=== PATIENT | male | born 1950 | race Caucasian/White ===

== ENCOUNTER 2025-05-24 07:21 | Inpatient (IN) | payer MEDICARE, SELFPAY ==
[2025-05-23 19:54] VITALS: BP 129/61
[2025-05-23 19:57] VITALS: BP 107/64; BMI 27.6
[2025-05-23 20:00] VITALS: BP 107/64
[2025-05-23 20:15] LABS: Hematocrit 37.5 % (39.0-52.0); Hemoglobin 12.7 g/dL (13.0-18.0); Mean Corp Hgb Conc. 33.9 g/dL (33.0-37.0); Mean Corpuscular Volume 88.7 fL (80.0-94.0); Nucleated Red Blood Cells % 0 % (-); Platelet Count 105 10^3/uL (130-400); Red Cell Dist. Width 12.0 % (11.5-14.5)
[2025-05-23 20:36] LABS: ALT (SGPT) 14 U/L (0-50); AST (SGOT) 21 U/L (17-59); Albumin 4.3 g/dl (3.5-5.0); Alkaline Phosphatase 75 U/L (38-126); Blood Urea Nitrogen 36 mg/dl (9-20); Calcium 8.7 mg/dl (8.4-10.2); Carbon Dioxide 21 mmol/L (22-30); Chloride 100 mmol/L (98-107); Estimated Creatinine Clearance 24 ml/min; Glucose 164 mg/dl (70-99); Lipase 111 U/L (23-300); Potassium 5.3 mmol/L (3.5-5.1); Sodium 130 mmol/L (135-145); Total Protein 6.8 g/dl (6.3-8.2); eGFR 20.07
[2025-05-23 21:00] VITALS: BP 97/64
[2025-05-23 22:00] VITALS: BP 107/62
[2025-05-23] MEDS: NSS 1000 IV (22:14)
[2025-05-23] MEDS: OMNIPAQUE 50 ML PO (22:18)
[2025-05-23 22:36] LABS: COVID-19 Antigen Negative (Negative)
[2025-05-23 23:00] VITALS: BP 109/62
--- NOTE | 2025-05-23 23:49 | ED.GENMED ---
History of Present Illness
<Halie Rosales PA-C - Last Filed: 05/24/25 13:00>
General
Chief Complaint: Abdominal Symptoms
Source: patient and family
Exam Limitations: none
Time Seen by Provider: 05/23/25 21:19
Nursing documentation reviewed up to this point in time: agreed with
History of Present Illness
History of Present Illness:
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 Patient and both suffer from baseline dementia and are poor historians. History taking
somewhat limited however patient's daughter did provide some background information.
Patient states that he has been experiencing subjective fevers/chills as well as significant loose output from ostomy. It is unclear how long the symptoms been occurring. Patient states he feels more weak than his baseline. He also had 2 episodes
of vomiting today. He denies any abdominal pain, dysuria, hematuria. No chest pain or shortness of breath. He denies any recent antibiotic use or hospitalization.
Patient's daughter states that she face times her parents every day and yesterday they seem to be at their baseline health. However, when she spoke with them today he was expressing the need to be seen in emergency department. He did seem somewhat
confused.
Patient is not on any oral anticoagulation.
Review of Systems
<Halie Rosales PA-C - Last Filed: 05/24/25 13:00>
Review of Systems
Allergies reviewed?: Yes
All Other Systems: ROS reviewed and negative except as documented in HPI and ROS
Phy Exam
<Halie Rosales PA-C - Last Filed: 05/24/25 13:00>
Physical Exam
Physical Exam:
Vitals: Patient's vital signs are stable. Temp 99.9F
General: Patient appears in no distress.
Skin: Warm and dry, no rashes or lesions
Head: Normocephalic, atraumatic
Eyes: Sclera nonicteric.
Throat: Protecting airway
Neck: Normal ROM, no cervical spine tenderness, no meningismus
Cardiac: Regular rate and rhythm, no murmurs.
Pulm: Normal respiratory effort, no wheezes, rales, rhonchi heard on exam
Abdomen: Abdomen soft and nontender. Colostomy bag with light brown liquid stool. No erythema, tenderness surrounding ostomy site
Extremities: No evidence of cyanosis or edema
Neuro: AAOx2. No focal deficits.
Psychiatric: Normal affect.
Course
<Halie Rosales PA-C - Last Filed: 05/24/25 13:00>
Orders/Labs/Results
Orders:
Orders
05/23/25 20:00
Complete Blood Count/With Diff Urgent
Comprehensive Metabolic Panel Urgent
Lipase Urgent
05/23/25 21:59
Urinalysis Reflex To Culture Urgent
Date Specimen was Collected: 05/23/25
Time Specimen was Collected: 23:57
Iohexol [Omnipaque] See Protocol PO NOW STA
05/23/25 22:00
0.9% Sodium Chloride 1000 ml [Nss] 1,000 ml IV BOLUS
05/23/25 22:09
COVID-19 Antigen Urgent
Source: Nasal Swab
Lactic Acid Q4H
Comment: CANCEL 2nd LACTIC ACID IF 1st LACTIC ACID IS LESS THAN 2
Blood Culture Q30M
ASHLYN Source: Blood/Venous
Specimen Description:
Blood Culture Q30M
ASHLYN Source: Blood/Venous
Specimen Description:
Influenza A+B Rapid Molecular Urgent
ASHLYN Source: Nasal Swab
Specimen Description:
05/23/25 22:23
STOOL [C difficile Antigen & Toxins] Urgent
ASHLYN Source: Feces/Stool
Specimen Description:
Date Specimen was Collected: 05/23/25
Time Specimen was Collected: 22:22
Stool Culture Urgent
ASHLYN Source: Feces/Stool
Specimen Description:
Date Specimen was Collected: 05/23/25
Time Specimen was Collected: 22:23
05/23/25 23:58
EKG- Treatment ONCE
05/24/25
Electrocardiogram (*1) Stat
Reason for Study: Chest Pain
CT Abd/pel (oral only)-[facility] Only Urgent
Comment: colostomy, renal insufficiency
Reason For Exam: vomiting, diarrhea, fever
05/24/25 01:00
Osmolality, Random Urine Urgent
Date Specimen was Collected: 05/23/25
Time Specimen was Collected: 23:57
Comment: ADD
Urine Microscopic Reflex Cult Urgent
05/24/25 02:58
Acetaminophen [Tylenol] 650 mg PO Q4HPRN PRN
Ondansetron Injectable [Zofran] 4 mg IV Q6HPRN PRN
05/24/25 03:00
Flush (0.9% Sodium Chloride) [Flush (Nss)] See Dose Instructions IV PER PROTOCOL
05/24/25 04:08
0.9% Sodium Chloride 1000 ml [Nss] 1,000 ml IV 125 mls/hr
05/24/25 05:25
Basic Metabolic Panel Urgent
CBC/With Diff [Complete Blood Count/With Diff] Urgent
TSH Urgent
Comment: ADD
05/24/25 08:00
Heparin 5,000 units SC Q8
Abnormal Lab Results
05/23/25 05/24/25 05/24/25
20:00 01:00 05:25
WBC 12.8 H 10^3/uL
(4.8-10.8)
RBC 4.23 L 10^6/uL 4.13 L 10^6/uL
(4.70-6.10) (4.70-6.10)
Hgb 12.7 L g/dL 12.3 L g/dL
(13.0-18.0) (13.0-18.0)
Hct 37.5 L % 36.5 L %
(39.0-52.0) (39.0-52.0)
Plt Count 105 L 10^3/uL 91 L 10^3/uL
(130-400) (130-400)
Abs Immat Gran (auto) 0.1 H 10^3/uL
(0-0.05)
Absolute Neuts (auto) 7.1 H 10^3/uL 9.9 H 10^3/uL
(1.4-6.5) (1.4-6.5)
Absolute Lymphs (auto) 0.5 L 10^3/uL
(1.2-3.4)
Absolute Monos (auto) 0.8 H 10^3/uL 1.5 H 10^3/uL
(0.1-0.6) (0.1-0.6)
Immature Gran % 0.6 H %
(0-0.5)
Neutrophils % 83.1 H % 77.4 H %
(42.2-75.2) (42.2-75.2)
Lymphocytes % 6.1 L % 10.2 L %
(20.5-51.1) (20.5-51.1)
Monocytes % 9.9 H % 11.4 H %
(1.7-9.3) (1.7-9.3)
Sodium 130 L mmol/L 128 L mmol/L
(135-145) (135-145)
Potassium 5.3 H mmol/L
(3.5-5.1)
Carbon Dioxide 21 L mmol/L 20 L mmol/L
(22-30) (22-30)
BUN 36 H mg/dl 42 H mg/dl
(9-20) (9-20)
Creatinine 3.1 H mg/dL 3.3 H mg/dL
(0.7-1.3) (0.7-1.3)
Glucose 164 H mg/dl 125 H mg/dl
(70-99) (70-99)
Ur Occult Blood Reflex 1+ A
(Negative)
Urine RBC 3-6 A /HPF
(0-2)
Urine Bacteria (Reflex) Few A
(Negative)
Urine Glucose 3+ A
(Negative)
Urine Albumin (Reflex) 2+ A
(Neg - Trace)
05/24/25 05:25
05/24/25 05:25
Vital Signs
Initial and Last Documented VS:
Initial Vital Signs
BP
129/61
05/23/25 19:54
Last Documented Vital Signs
Temp Pulse Resp BP Pulse Ox
98.4 F 65 18 123/65 96
05/24/25 09:27 05/24/25 09:27 05/24/25 09:27 05/24/25 09:27 05/24/25 09:27
<Weston Jaffe, DO - Last Filed: 05/24/25 00:57>
Orders/Labs/Results
Orders:
Orders
05/23/25 20:00
Complete Blood Count/With Diff Urgent
Comprehensive Metabolic Panel Urgent
Lipase Urgent
05/23/25 21:59
Urinalysis Reflex To Culture Urgent
Date Specimen was Collected: 05/23/25
Time Specimen was Collected: 23:57
Iohexol [Omnipaque] See Protocol PO NOW STA
05/23/25 22:00
0.9% Sodium Chloride 1000 ml [Nss] 1,000 ml IV BOLUS
05/23/25 22:09
COVID-19 Antigen Urgent
Source: Nasal Swab
Lactic Acid Q4H
Comment: CANCEL 2nd LACTIC ACID IF 1st LACTIC ACID IS LESS THAN 2
Blood Culture Q30M
ASHLYN Source: Blood/Venous
Specimen Description:
Blood Culture Q30M
ASHLYN Source: Blood/Venous
Specimen Description:
Influenza A+B Rapid Molecular Urgent
ASHLYN Source: Nasal Swab
Specimen Description:
05/23/25 22:23
STOOL [C difficile Antigen & Toxins] Urgent
ASHLYN Source: Feces/Stool
Specimen Description:
Date Specimen was Collected: 05/23/25
Time Specimen was Collected: 22:22
Stool Culture Urgent
ASHLYN Source: Feces/Stool
Specimen Description:
Date Specimen was Collected: 05/23/25
Time Specimen was Collected: 22:23
05/23/25 23:58
EKG- Treatment ONCE
05/24/25
Electrocardiogram (*1) Stat
Reason for Study: Chest Pain
CT Abd/pel (oral only)-[facility] Only Urgent
Comment: colostomy, renal insufficiency
Reason For Exam: vomiting, diarrhea, fever
05/24/25 01:00
Osmolality, Random Urine Urgent
Date Specimen was Collected: 05/23/25
Time Specimen was Collected: 23:57
Comment: ADD
Urine Microscopic Reflex Cult Urgent
05/24/25 02:58
Acetaminophen [Tylenol] 650 mg PO Q4HPRN PRN
Ondansetron Injectable [Zofran] 4 mg IV Q6HPRN PRN
05/24/25 03:00
Flush (0.9% Sodium Chloride) [Flush (Nss)] See Dose Instructions IV PER PROTOCOL
05/24/25 04:08
0.9% Sodium Chloride 1000 ml [Nss] 1,000 ml IV 125 mls/hr
05/24/25 05:25
Basic Metabolic Panel Urgent
CBC/With Diff [Complete Blood Count/With Diff] Urgent
TSH Urgent
Comment: ADD
05/24/25 08:00
Heparin 5,000 units SC Q8
Abnormal Lab Results
05/23/25 05/24/25 05/24/25
20:00 01:00 05:25
WBC 12.8 H 10^3/uL
(4.8-10.8)
RBC 4.23 L 10^6/uL 4.13 L 10^6/uL
(4.70-6.10) (4.70-6.10)
Hgb 12.7 L g/dL 12.3 L g/dL
(13.0-18.0) (13.0-18.0)
Hct 37.5 L % 36.5 L %
(39.0-52.0) (39.0-52.0)
Plt Count 105 L 10^3/uL 91 L 10^3/uL
(130-400) (130-400)
Abs Immat Gran (auto) 0.1 H 10^3/uL
(0-0.05)
Absolute Neuts (auto) 7.1 H 10^3/uL 9.9 H 10^3/uL
(1.4-6.5) (1.4-6.5)
Absolute Lymphs (auto) 0.5 L 10^3/uL
(1.2-3.4)
Absolute Monos (auto) 0.8 H 10^3/uL 1.5 H 10^3/uL
(0.1-0.6) (0.1-0.6)
Immature Gran % 0.6 H %
(0-0.5)
Neutrophils % 83.1 H % 77.4 H %
(42.2-75.2) (42.2-75.2)
Lymphocytes % 6.1 L % 10.2 L %
(20.5-51.1) (20.5-51.1)
Monocytes % 9.9 H % 11.4 H %
(1.7-9.3) (1.7-9.3)
Sodium 130 L mmol/L 128 L mmol/L
(135-145) (135-145)
Potassium 5.3 H mmol/L
(3.5-5.1)
Carbon Dioxide 21 L mmol/L 20 L mmol/L
(22-30) (22-30)
BUN 36 H mg/dl 42 H mg/dl
(9-20) (9-20)
Creatinine 3.1 H mg/dL 3.3 H mg/dL
(0.7-1.3) (0.7-1.3)
Glucose 164 H mg/dl 125 H mg/dl
(70-99) (70-99)
Ur Occult Blood Reflex 1+ A
(Negative)
Urine RBC 3-6 A /HPF
(0-2)
Urine Bacteria (Reflex) Few A
(Negative)
Urine Glucose 3+ A
(Negative)
Urine Albumin (Reflex) 2+ A
(Neg - Trace)
05/24/25 05:25
05/24/25 05:25
Vital Signs
Initial and Last Documented VS:
Initial Vital Signs
BP
129/61
05/23/25 19:54
Last Documented Vital Signs
Temp Pulse Resp BP Pulse Ox
98.4 F 65 18 123/65 96
05/24/25 09:27 05/24/25 09:27 05/24/25 09:27 05/24/25 09:27 05/24/25 09:27
<Halie Rosales PA-C - Last Filed: 05/24/25 13:00>
MDM/Problems Addressed
Differential Diagnosis Includes:
Not limited to: Viral gastroenteritis, colitis, bowel obstruction, UTI/pyelonephritis, acute dehydration/electrolyte derangements, etc.
MDM/Problems Addressed:
74-year-old male presents with generalized weakness and intermittent vomiting. He reports chills and subjective fever today, but denies abdominal pain. He has a colostomy with reported recent increase in loose output.
On arrival, vitals are stable. On physical exam, patient is in no acute distress. Colostomy bag contains brown, liquid output without surrounding skin changes or erythema. Abdomen is soft, non-tender, and non-distended. No evidence of acute change
in mental status noted.
Laboratory evaluation reveals findings consistent with acute dehydration, including acute on chronic renal insufficiency and hyponatremia. These findings are likely secondary to GI losses. CT imaging shows evidence of ileitis, which may be
contributing to the patient�s increased colostomy output and fluid losses. No obstruction.
Generalized weakness suspected secondary to volume depletion in the setting of gastrointestinal illness. No signs of sepsis or focal infection requiring emergent intervention identified at this time.
Plan is to admit for IV fluid resuscitation, electrolyte monitoring and replacement, and further evaluation and supportive care. Will hold abx at this time. Patient remains hemodynamically stable and has been accepted to the hospitalist service for
continued inpatient management
Chronic conditions affecting care:
History of severe colitis with ostomy
Acute Exacerbation and/or Progression of Chronic Illness:
N/A
<Halie Rosales PA-C - Last Filed: 05/24/25 13:00>
*Radiology
Radiology exam reviewed: radiology read reviewed
*Pulse Oximetry
SaO2: 96
Oxygen Mode of Delivery: Room air
Patient hypoxic: no
*EKG
Interpreted by ED Provider?: Yes
EKG Intrepretation Date: 05/23/25
Interpretation: abnormal
Comparison EKG: no comparison EKG present
Heart Rate: 70
Rate: normal
Rhythm: sinus and PVC's
Higginson: normal axis
Interval: normal QT interval
QRS Pattern: low voltage
Ischemia: non-specific ST changes
*Nurse Ortho Interpretation
Rate: normal
Interpretation: normal
Heart Rate: 68
Rhythm: sinus
*Critical Care Note
Total Time (30-74mins, 75-104mins- exclusive of procedures): Not Applicable
<Halie Rosales PA-C - Last Filed: 05/24/25 13:00>
Patient Management
Discussion with other providers: Hospitalist
ED Attending Note
<Halie Rosales PA-C - Last Filed: 05/24/25 13:00>
-
Portions of this chart may have been created with voice recognition software.� Occasional wrong word or��sound alike� substitutions may have occurred due to the inherent limitations of voice recognition software.
<Weston Jaffe DO - Last Filed: 05/24/25 00:57>
ED Attending Note
Patient seen and examined by attending physician: Yes
ED Attending Note:
74-year-old male with liquid stool in his ostomy and vomiting. CT scan shows enteritis. Lab work shows dehydration.
Patient to be admitted to the hospital service.
Discharge Plan
Departure
Patient Disposition: Admit
Date of Disposition: 05/24/25
Time of Disposition: 01:27
Presentation/result/management discussed w/ accepting MD/DO: Hospitalist
Discharge Problem:
Enteritis, Acute dehydration, Acute on chronic renal insufficiency
Interventions
Interventions:
*Risk Screen - Suicide Last Done: 05/23/25 19:57
*General Assessment Last Done: 05/23/25 19:57
*Neglect/Abuse Screening Last Done: 05/23/25 19:57
*ED- Fall Risk Assessment Last Done: 05/23/25 19:57
*ED COVID-19 Vaccine History Last Done: 05/23/25 19:57
*ED Influenza Vaccine History Last Done: 05/23/25 19:57
UT-Uuoleb-Yqhdwzllat Assessment Last Done: 05/24/25 03:41
[2025-05-24] VITALS (13 sets, daily range): BP systolic 97–124; BP diastolic 54–75
--- NOTE | 2025-05-24 02:26 | DOWNTIME ---
There was a [employer] Downtime on 05/24/2025 from 0100 to 05/24/2025 at 0215. Downtime documentation of patient's care, including medication administrations, has been reconciled in the electronic record per guidelines. Refer to the
patient's paper chart under the miscellaneous tab to see printed paper medication records and downtime forms.
[2025-05-24 02:30] LABS: Urine Character Clear (Clear)
--- NOTE | 2025-05-24 03:02 | HPS.HSE ---
Family Physician
-
Family Physician: NOT KNOW UNKNOWN - PT DOES
Chief Complaint
-
Loose stools, N/V
History of Present Illness
Patient is a 74y M with PMH significant for total colectomy / ileostomy for UC / Crohn's who presents to ED complaining of increased ostomy output / diarrhea for several weeks. He also reports occasional episodes of N/V of non-bloody emesis. He
has become increasingly weak during that time. Today he noted chills at home and presented to the ED for further evaluation. Patient denies any abdominal pain. He denies any recent travel or known sick contacts.
He has noted no blood in the stool or emesis.
Medical History
Past Medical History
Past Medical History: Reports Other
Additional Past Medical History:
Hypertension
CKD III
Hypothyroidism
Crohn's / UC
Past Surgical History: Reports Other
Additional Past Surgical History:
Total Colectomy / Ileostomy
Bilateral SENIA
RUE ORIF
Social History
Tobacco: Non-smoker
Alcohol: None
Drug: None
Family History
Family History: Not pertinent
Allergies / Home Medications
Allergies reflects when Allergies were last updated in [employer].
Home Medications with original date entered in [employer]
Allergy/Medication List:
Patient cannot confirm his current medications.
If medication reconciliation has not been performed, why?: Medication List N/A
Review of Systems
-
History Source: Patient
A 12 point ROS was completed and negative except as noted: Yes
Constitutional: Reports Fatigue; Denies Fever or Chills
Respiratory: Denies Cough or Trouble Breathing
Cardiac: Denies Chest Pain or Palpitations
Abdomen/GI: Reports Nausea, Vomiting and Diarrhea; Denies Abdominal Pain, Bloody Stools or Black Stools
: Denies Dysuria or Frequency
Musculoskeletal: Denies Joint Pain or Edema
Neurological: Denies Dizzy or Headache
Psych: Denies Depression or Anxiety
Physical Exam
Vital Signs
Vital Signs
Temp Pulse Resp BP Pulse Ox
99.9 F 64 24 102/63 95
05/23/25 20:18 05/24/25 02:45 05/24/25 02:45 05/24/25 02:23 05/24/25 02:45
Physical Exam
General: Other (74y M in no acute distress.)
HEENT: Moist mucous membranes and PERRLA
Respiratory: Clear; No Wheezes, Rales or Rhonchi
Cardiac: S1/S2 and Regular Rhythm; No Murmur
GI: Soft, Non Tender, Non Distended and Other (Bowel sounds are present but diminished. RLQ ostomy intact with liquid stool in device. No abdominal tenderness.)
Musculoskeletal: No Clubbing, No Cyanosis and No Edema
Neuro: AO x 3
Laboratory Results
-
05/23/25 20:00
05/23/25 20:00
Laboratory Results
Lactic Acid Cancelled 05/24/25 02:00
Total Bilirubin 0.8 mg/dl (0.2-1.3) 05/23/25 20:00
AST 21 U/L (17-59) 05/23/25 20:00
ALT 14 U/L (0-50) 05/23/25 20:00
Alkaline Phosphatase 75 U/L (38-126) 05/23/25 20:00
Lipase 111 U/L (23-300) 05/23/25 20:00
Impression/Plan
-
A/P: Patient is a 74y M with PMH significant for hypertension and CKD who presents to ED complaining of weakness and chills after 3 weeks of N/V/D.
Enteritis
- Admit for further evaluation and treatment.
- Stool cultures sent from the ED.
- Observe off of abx pending culture data.
- Supportive care with IVFs, antiemetics, etc.
- Follow for new / worsening symptoms.
- Routine ostomy care.
ARTEMIO on CKD III
- SCr = 3.1 compared to usual baseline around 2 (per patient).
- Likely due to volume losses as noted above.
- IVF support and follow for improvement in labs / lytes.
Benign Hypertension
- Patient unable to confirm current medication list.
- Formal med rec in AM and then resume meds as appropriate.
Hypothyroidism
- Confirm / resume usual dose of T4 in the AM.
Crohn's / UC
- Seems to be s/p curative colectomy.
- Ostomy care.
DVT Prophylaxis: Subcut Heparin
Code Status: Full
[2025-05-24] MEDS: NSS 1000 IV ×3 (04:08→20:38)
[2025-05-24] MEDS: FLUSH (NSS) 1 FLUSH IV (04:14)
[2025-05-24 05:46] LABS: Hematocrit 36.5 % (39.0-52.0); Hemoglobin 12.3 g/dL (13.0-18.0); Mean Corp Hgb Conc. 33.7 g/dL (33.0-37.0); Mean Corpuscular Volume 88.4 fL (80.0-94.0); Nucleated Red Blood Cells % 0 % (-); Platelet Count 91 10^3/uL (130-400); Red Cell Dist. Width 12.1 % (11.5-14.5)
[2025-05-24 06:03] LABS: Blood Urea Nitrogen 42 mg/dl (9-20); Calcium 8.6 mg/dl (8.4-10.2); Carbon Dioxide 20 mmol/L (22-30); Chloride 99 mmol/L (98-107); Estimated Creatinine Clearance 22 ml/min; Glucose 125 mg/dl (70-99); Potassium 4.8 mmol/L (3.5-5.1); Sodium 128 mmol/L (135-145); eGFR 18.62
--- NOTE | 2025-05-24 08:13 | PHANOTE ---
Med Rec Note:
Family not in room with pt, per previous notes pt is a poor historian. home med list compiled from Dr Stein, left unconfirmed.
[2025-05-24] MEDS: HEPARIN 5000 UNITS SC ×2 (08:25→17:30)
--- NOTE | 2025-05-24 10:41 | W.PN.HOSP.TC ---
Today's Communication/Plan
-
See plan
Assessment / Plan
Assessment / Plan
Impression
Patient is a 74y M with PMH significant for hypertension and CKD who presents to ED complaining of weakness and chills after 3 weeks of N/V/D with increased colostomy output
Enteritis.
� Presents with fever chills and increased colostomy output
ARTEMIO on CKD stage IIIb
Mild normal anion gap metabolic acidosis.
Hyponatremia
Conditions prior to admission
Ulcerative colitis status post colectomy remote over 35 years ago
CKD stage IIIb with baseline creatinine 2.5
Essential hypertension
Presumably hyperthyroidism (patient is on methimazole)
Plan
Acute enteritis.
Crohn's disease with colectomy over 35 years ago. Currently not on any anti-inflammatory or Biologics.
Presents with fever chills at home. Reports abdominal discomfort, nausea vomiting and increased colostomy output for over a week.
Afebrile pain
Mild leukocytosis
CT scan with oral contrast only suggestive of ileitis.
Stool cultures pending
Stool for C. difficile negative.
GI consultation.
Check calprotectin.
Consider antibiotics
Allow clear liquid diet
ARTEMIO on CKD stage III
Mild normal anion gap metabolic acidosis with
Mild hyponatremia presumed due to volume loss.
Check urine sodium and urine osmolarity.
Continue oral bicarbonate
Continue IV fluids.
Consider nephrology consultation if worsening renal function.
Presumed hyperthyroidism (patient was on methimazole pending home med reconciliation,
Update TSH/free T4
Essential hypertension.
Pending home med reconciliation. Hold antihypertensives secondary to above.
Monitor BP trend
Anticipated Discharge: 24 - 48 hours
Subjective/Interval History
-
Date of Service: May 24, 2025
Objective Data
-
Labs:
Laboratory Results
05/24/25
05:25
WBC 12.8 H
Hgb 12.3 L
Hct 36.5 L
Plt Count 91 L
Sodium 128 L
Potassium 4.8
Chloride 99
Carbon Dioxide 20 L
BUN 42 H
Creatinine 3.3 H
Glucose 125 H
Calcium 8.6
Vital Signs:
Vital Signs
Temp Pulse Resp BP Pulse Ox
98.4 F 65 18 123/65 96
05/24/25 09:27 05/24/25 09:27 05/24/25 09:27 05/24/25 09:27 05/24/25 09:27
I&O
05/23/25 05/24/25 05/25/25
06:59 06:59 06:59
Output Total 300 / 300
Balance -300 / -300
Physical Exam
-
General: Well Developed and No Apparent Distress
HEENT: Normocephalic, Atraumatic and Moist Mucous Membranes
Respiratory: Clear to Auscultation
Cardiac: Regular Rhythm and S1/S2; Negative Murmur, Rub or Gallop
GI: Soft, Nontender, Nondistended, Normal Bowel Sounds and Ostomy (Right upper quadrant colostomy.); Negative Organomegaly
Rectal: Deferred by Provider
Musculoskeletal: No Clubbing, No Cyanosis and No Edema
Skin: Negative Rash
Neuro: Nonfocal/Grossly Intact
--- NOTE | 2025-05-24 11:10 | CM ---
Cm reviewed chart and spoke with patient, Angelique and dtr Tory at bedside
Lives in a first floor set up apartment with Angelique no OWEN
Independent , ambulating w/o AD and drives
DME ostomy supplies ; [facility] supply
no issues with getting ostomy supplies
Dtr lives in [place] [phone] an hour away.
She states that 's dementia is worse than patient ?
Pt seems alert and able to answer questions approriately
Dtr and pt report that financial POA is [facility] in [place]?
not sure of medical POA
Pt not interested in talking regarding this at this time .
Dtr provided with info on [facility]
Dtr would like for them to move closer to her?
PCP Dr. Jevon Lane [phone]
RX plan yes
Ph[facility] in [place]
no hx of SN no SNF in the past
Dtr plans to take care of her mother while he is in the hospital
CM will continue to follow up for dcp needs
[2025-05-24] MEDS: SODIUM BICARBONATE 650 MG PO (11:24)
[2025-05-24 12:40] LABS: TSH 0.55 uIU/ml (0.47-4.68)
--- NOTE | 2025-05-24 14:26 | WOUNDNOTE ---
WOC RN NOTE: Ostomy consult received. Patient has had ostomy for over 30 years and will bring in supplies from home. He denies ostomy needs. TT Hospitalist and consult cancelled.
--- NOTE | 2025-05-24 15:08 | CON.GI ---
Addendum entered and electronically signed by Jennifer Pimentel DO 05/25/25 08:11:
The patient was seen and examined by me independently in collaboration with the nurse practitioner.
Past medical history/social history/medications/allergies/family history reviewed.
Lab data and imaging data reviewed.
Randy Melchor is a 74 y.o. male with HTN, CKD, UC vs. CD s/p total colectomy w/ end ileostomy (>35 years ago) who presents with fever and increased output from his ostomy. He is somewhat of a poor historian with regards to his history with
IBD-unclear of diagnosis and what led to his surgeries. He has not seen a GI doctor in 10 years. He reports his stoma 'fell off' about 1.5 years ago. Typically, fills his ostomy bag about 2-3x per day but stool is more formed, leading up to
admission, very loose, watery consistency, nonbloody. He has no abdominal pain, nausea or vomiting.
No recent GI care/workup
Denies prior pharmacologic management of his IBD, poor historian
No prior records to review.
Hgb 12.2, MCV 88.4, Plt 91
BUN 36, Cr. 3.1, Na 130, K 5.3, LFTs WNL
Unkonwn baseline platelets
CT A/P w/ PO Contrast shows evidence of prior colectomy with RLQ ileostomy. Stranding along the distal ileum, focal prominence within the right abdominal wall. No evidence of small bowel dilation. Evidence of choleithiasis, no ductail dilation.
Liver, pancreas and spleen appear normal.
#N/V
#Fever
#Watery Diarrhea
#Increased ostomy output
#History of crohns colitis vs. UC s/p total colectomy
#thrombocytopenia-unknown if this is new
#ARTEMIO on CKD
DDx: infectious enteritis vs. active small bowel crohns disease
Given acuity of sx, favor infectious. Workup in progress, no antibiotics given yet, patient does endorse improvement with just fluids
-C.diff negative, f/u remaining infectious stool studies
-ESR 42, CRP 119
-can check fecal calpro- but less helpful vs. colonic disease
-check MRE
-tentative plans for ileoscopy tomorrow pending results of above
-treatment of acidosis
-IVF
Original Note:
Consultation
-
Date/Time Consultation Requested: 05/24/25 1030
Date/Time Consultation Performed: 05/24/25 1500
Requesting Provider: Eduin Wallace MD
Performing Provider: EPI Zhou, Zee Pimentel DO
Reason for Consultation: change in ostomy output
Medical History
Chief Complaint / HPI
Chief Complaint: change in ostomy output
History of Present Illness:
Pt is a 74yo with no prior visits at with hx CKD, anemia, HTN, cholelithiasis, hyperthyroidism on Methimazole, depression, prior b/l THR, and ulcerative colitis. In review with patient he had total colectomy and ileostomy in [place] 35 years ago then removal of rectum 1 years after that. He was unsure if his diagnosis was changed to crohn's over the years and saw occasional GI in follow up last about 10 years ago. He had several admission to a hospital in
[place], [place] with what sound like possible SBO with decreased ostomy output. He has never taken medication for colitis for last 35 years. He also admits that the external stoma on ostomy fell off about 1-2 years ago and now depressed
ostomy and pt did not seek care as was still functioning. He now presents with change in ostomy output to liquid stools over last 4 weeks. Typically output is formed with change 4 times per day. Now all liquid with change 4-5 times per day. He
was then noted with fever and weakness. On admission noted with concern worsening CKD and metabolic acidosis with hyponatremia. Labs with Na 130, K 5.3, creat 3.1, WBC 12.8 with normal LFT's and lipase. CT on admission with prior colectomy right
LQ ileostomy, stranding in distal ileum with enteritis, prominence with ileostomy within abdominal wall.
In review with patient he admits to nausea and small amount of vomiting, he denies odynophagia, dysphagia, wt loss, GERD, abdominal pain, blood or black in stools. Last colonoscopy 35 years ago. No prior EGD. No NSAID other than ASA use. No
anticoagulation use.
Past Medical History
Past Medical History: HTN, Hyperthyroidism, Renal Failure (CKD), Psychiatric (depression) and Other (ulcerative colitis with ? crohns no chronic medications, anemia, cholelithiasis )
Past Surgical History: Bowel Resection (total colectomy 35 years ago than removal of rectum 34 years ago) and Orthopedic (b/l THR)
Social History
Tobacco: Non-Smoker
Alcohol: None
Drug: None
Personal:
Living: With Family
Employment: Retired
Family History
Family History: Other (paternal GF with UC)
Allergies / Home Medications
Allergy/AdvReac Type Severity Reaction Status Date / Time
No Known Allergies Allergy Verified 05/23/25 22:02
�Medication �Instructions �Recorded
amlodipine 5 mg tablet 5 mg PO DAILY 05/24/25
empagliflozin 10 mg tablet 10 mg PO DAILY 05/24/25
(Jardiance)
methimazole 5 mg tablet 5 mg PO DAILY 05/24/25
paroxetine HCl 10 mg tablet 10 mg PO DAILY 05/24/25
ramipril 1.25 mg capsule 1.25 mg PO DAILY 05/24/25
rosuvastatin 20 mg tablet 20 mg PO DAILY 05/24/25
sodium bicarbonate 650 mg tablet 650 mg PO DAILY 05/24/25
Review of Systems
-
History Source: Patient
Constitutional: Reports Fever and Chills
EENT: Reports No Symptoms
Respiratory: Reports No Symptoms
Cardiac: Reports No Symptoms
Abdomen/GI: Reports Nausea, Vomiting and Diarrhea
: Reports No Symptoms
Musculoskeletal: Reports No Symptoms
Skin: Reports No Symptoms
Neurological: Reports Weakness
Endocrine: Reports No Symptoms
Hematologic/Lymphatic: Reports No Symptoms
Vital Signs
Temp Pulse Resp BP Pulse Ox
98.4 F 65 18 111/75 97
05/24/25 09:27 05/24/25 09:27 05/24/25 09:27 05/24/25 09:51 05/24/25 09:52
Physical Exam
Exam
General: Well Developed, Well Nourished, No Apparent Distress and Other (occasional forgetfulness with dates for history)
HEENT: Normocephalic and Anicteric
Respiratory: Clear
Cardiac: Regular Rhythm
GI: Soft, Non Tender, Non Distended and Other (flat ostomy with yellow liquid stool)
Musculoskeletal: No Clubbing and No Cyanosis
Skin: Warm and Dry
Neuro: Awake, Alert and AO x 3
Psych: Calm
Results
WBC 12.8 10^3/uL (4.8-10.8) H 05/24/25 05:25
Hgb 12.3 g/dL (13.0-18.0) L 05/24/25 05:25
Hct 36.5 % (39.0-52.0) L 05/24/25 05:25
MCV 88.4 fL (80.0-94.0) 05/24/25 05:25
Plt Count 91 10^3/uL (130-400) L 05/24/25 05:25
Absolute Neuts (auto) 9.9 10^3/uL (1.4-6.5) H 05/24/25 05:25
Sodium 128 mmol/L (135-145) L 05/24/25 05:25
Potassium 4.8 mmol/L (3.5-5.1) 05/24/25 05:25
Chloride 99 mmol/L (98-107) 05/24/25 05:25
Carbon Dioxide 20 mmol/L (22-30) L 05/24/25 05:25
BUN 42 mg/dl (9-20) H 05/24/25 05:25
Creatinine 3.3 mg/dL (0.7-1.3) H 05/24/25 05:25
Calcium 8.6 mg/dl (8.4-10.2) 05/24/25 05:25
Total Bilirubin 0.8 mg/dl (0.2-1.3) 05/23/25 20:00
AST 21 U/L (17-59) 05/23/25 20:00
ALT 14 U/L (0-50) 05/23/25 20:00
Alkaline Phosphatase 75 U/L (38-126) 05/23/25 20:00
Lipase 111 U/L (23-300) 05/23/25 20:00
Diagnostic Image Results:
05.24.25 CT Abd/pel (oral only)- Only
Prior colectomy with right lower quadrant ileostomy. There is wall thickening and stranding along the distal ileum which likely represents enteritis. There is focal prominence of the ileostomy within the abdominal wall although there are no
intra-abdominal dilated loops of bowel to suggest obstruction..
Cholelithiasis.
Atrophic kidneys.
Prior GI Procedures:
EGD: none
Colonoscopy: 35 years ago
Assessment / Plan
-
Pt is a 74yo with no prior visits at with hx CKD, anemia, HTN, cholelithiasis, hyperthyroidism on Methimazole, depression, prior b/l THR, and ulcerative colitis. In review with patient he had total colectomy and ileostomy in [place] 35 years ago then removal of rectum 1 years after that. He was unsure if his diagnosis was changed to crohn's over the years and saw occasional GI in follow up last about 10 years ago. He had several admission to a hospital in
[place], [place] with what sound like possible SBO with decreased ostomy output. He has never taken medication for colitis for last 35 years. He also admits that the external stoma on ostomy fell off about 1-2 years ago and now depressed
ostomy and pt did not seek care as was still functioning. He now presents with change in ostomy output to liquid stools over last 4 weeks. Typically output is formed with change 4 times per day. Now all liquid with change 4-5 times per day. He
was then noted with fever and weakness. On admission noted with concern worsening CKD and metabolic acidosis with hyponatremia. Labs with Na 130, K 5.3, creat 3.1, WBC 12.8 with normal LFT's and lipase. CT on admission with prior colectomy right
LQ ileostomy, stranding in distal ileum with enteritis, prominence with ileostomy within abdominal wall.In review with patient he admits to nausea and small amount of vomiting, he denies odynophagia, dysphagia, wt loss, GERD, abdominal pain, blood
or black in stools. Last colonoscopy 35 years ago. No prior EGD. No NSAID other than ASA use. No anticoagulation use.
-change in ostomy output with liquid stools for 4 weeks
-low grade fever/leukocytosis
-nausea
-metabolic acidosis
-hyponatremia
-CT concern for enteritis and distal ileum stranding
-hx Ulcerative with ? transition to crohns but no current medication
-hx sluffing off of stoma about 1-2 years ago with flat stoma
-acute on chronic CKD
-hx prior SBO in past
other med problems:
- hx anemia- per patient related to CKD
-HTN
- cholelithiasis
- hyperthyroidism on Methimazole
- depression
- prior b/l THR
PLAN:
etiology of change in ostomy drainage related to underlying crohns with ? stricture, inflammation, vs infectious etiology vs other
cont to current acidosis and worsening CKD
clear diet advance in AM if tolerating and no vomiting
add CRP, ESR, fecal dionte
stool studies pending c-diff neg add stool wBC, giardia/crypto
t/c MRE or CTE when electrolytes improved
if not improving may need ileoscopy
if any issue with ostomy t/c colorectal eval with hx sluffing off of stoma 1-2 years ago but currently functiong
TSH 0.55
-
-
Thank you for consultation and allowing me to participate in the patient's care. Please call the clinical services professional GI physician during the after hours with any questions or concerns.
[2025-05-24 16:48] LABS: C-Reactive Protein 119.00 mg/L (0.0-10.00)
[2025-05-25] MEDS: HEPARIN 5000 UNITS SC ×4 (00:18→23:34)
[2025-05-25] MEDS: NSS 1000 IV ×2 (04:42→12:46)
[2025-05-25 07:51] VITALS: BP 153/70
[2025-05-25] MEDS: SODIUM BICARBONATE 650 MG PO (08:45)
[2025-05-25 08:55] LABS: Blood Urea Nitrogen 42 mg/dl (9-20); Calcium 8.4 mg/dl (8.4-10.2); Carbon Dioxide 20 mmol/L (22-30); Chloride 102 mmol/L (98-107); Estimated Creatinine Clearance 26 ml/min; Glucose 97 mg/dl (70-99); Potassium 4.4 mmol/L (3.5-5.1); Sodium 129 mmol/L (135-145); eGFR 22.67
[2025-05-25 09:01] LABS: Hematocrit 34.9 % (39.0-52.0); Hemoglobin 11.5 g/dL (13.0-18.0); Mean Corp Hgb Conc. 33.0 g/dL (33.0-37.0); Mean Corpuscular Volume 89.9 fL (80.0-94.0); Nucleated Red Blood Cells % 0 % (-); Red Cell Dist. Width 12.3 % (11.5-14.5)
[2025-05-25 10:12] LABS: Platelet Count 76 10^3/uL (130-400)
[2025-05-25 11:23] LABS: Glucose - Point of Care 102 mg/dl (70-99)
--- NOTE | 2025-05-25 14:05 | W.PN.HOSP.TC ---
Addendum entered and electronically signed by Eduin Wallace MD 05/25/25 14:31:
Discussed with GI
Since improvement, no further imaging planned
Advance to low residue diet and monitor.
Observe off IV fluids
Original Note:
Today's Communication/Plan
-
Reports improvement of abdominal discomfort.
GI contemplating further imaging with MRE and possibly ileoscopy.
Follow final stool cultures/stool WBC
Clear liquid diet
Observe off IV fluids
Follow BMP in a.m.
Assessment / Plan
Assessment / Plan
Impression
Patient is a 74y M with PMH significant for hypertension and CKD who presents to ED complaining of weakness and chills after 3 weeks of N/V/D with increased colostomy output
Enteritis.
� Presents with fever chills and increased colostomy output
ARTEMIO on CKD stage IIIb
Mild normal anion gap metabolic acidosis.
Hyponatremia
Conditions prior to admission
Ulcerative colitis status post colectomy remote over 35 years ago
CKD stage IIIb with baseline creatinine 2.5
Essential hypertension
Presumably hyperthyroidism (patient is on methimazole)
Plan
Acute enteritis.
Infectious versus IBD. Given acuity of onset suspect infectious.
Crohn's disease with colectomy over 35 years ago. Currently not on any anti-inflammatory or Biologics.
Presents with fever chills at home. Reports abdominal discomfort, nausea vomiting and increased colostomy output for over a week.
Afebrile
Mild leukocytosis
CT scan with oral contrast only suggestive of ileitis.
Stool cultures pending
Stool for C. difficile negative.
GI consultation.
Check calprotectin, pending
Has been off antibiotics
GI contemplating MRI and ileoscopy
Allow clear liquid diet
ARTEMIO on CKD stage III
Mild normal anion gap metabolic acidosis with
Mild hyponatremia presumed due to volume loss.
Low urine sodium and osmolarity 427 consistent with prerenal stimuli with increased ADH state.
Continue oral bicarbonate
Improving with IV fluids and oral bicarb.
Observe off IV fluids
Presumed hyperthyroidism (patient was on methimazole pending home med reconciliation,
TSH 0.55
Essential hypertension.
Pending home med reconciliation. Hold antihypertensives secondary to above.
Monitor BP trend
Anticipated Discharge: 24 - 48 hours
Subjective/Interval History
-
Date of Service: May 25, 2025
Objective Data
-
Labs:
Laboratory Results
05/25/25
07:32
WBC 8.5
Hgb 11.5 L
Hct 34.9 L
Plt Count 76 L
Sodium 129 L
Potassium 4.4
Chloride 102
Carbon Dioxide 20 L
BUN 42 H
Creatinine 2.8 H
Glucose 97
Calcium 8.4
Vital Signs:
Vital Signs
Temp Pulse Resp BP Pulse Ox
97.9 F 62 17 153/70 96
05/25/25 07:51 05/25/25 07:51 05/25/25 07:51 05/25/25 07:51 05/25/25 07:51
I&O
05/24/25 05/25/25 05/26/25
06:59 06:59 06:59
Intake Total 1500 / 1500
Output Total 300 / 300
Balance -300 / -300 1500 / 1500
Physical Exam
-
General: Well Developed and No Apparent Distress
HEENT: Normocephalic, Atraumatic and Moist Mucous Membranes
Respiratory: Clear to Auscultation
Cardiac: Regular Rhythm and S1/S2; Negative Murmur, Rub or Gallop
GI: Soft, Nontender, Nondistended, Normal Bowel Sounds and Ostomy (Right upper quadrant colostomy.); Negative Organomegaly
Rectal: Deferred by Provider
Musculoskeletal: No Clubbing, No Cyanosis and No Edema
Skin: Negative Rash
Neuro: Nonfocal/Grossly Intact
[2025-05-25 15:36] VITALS: BP 133/63
[2025-05-25 23:08] VITALS: BP 130/67
[2025-05-26 07:59] VITALS: BP 147/78
[2025-05-26 08:35] LABS: Blood Urea Nitrogen 32 mg/dl (9-20); Calcium 8.6 mg/dl (8.4-10.2); Carbon Dioxide 24 mmol/L (22-30); Chloride 107 mmol/L (98-107); Estimated Creatinine Clearance 32 ml/min; Glucose 98 mg/dl (70-99); Potassium 4.5 mmol/L (3.5-5.1); Sodium 136 mmol/L (135-145); eGFR 28.71
[2025-05-26] MEDS: SODIUM BICARBONATE 650 MG PO (10:26)
[2025-05-26] MEDS: HEPARIN 5000 UNITS SC ×2 (10:26→17:18)
--- NOTE | 2025-05-26 13:19 | W.DS.TRANS ---
DC Summary - [employer]
-
Discharge Instructions:
Discharge Diagnosis/Procedures Acute enteritis
ARTEMIO
Diet Regular
Blood Work BMP in one week
Instructions:
Stand-Alone Forms:
Changes to Home Medications: Yes
Discharge Medications:
DC Medications w/original date entered in [facility]
amlodipine 5 mg tablet 5 mg PO DAILY 05/24/25
empagliflozin 10 mg tablet (Jardiance) 10 mg PO DAILY 05/24/25
methimazole 5 mg tablet 5 mg PO DAILY 05/24/25
paroxetine HCl 10 mg tablet 10 mg PO DAILY 05/24/25
ramipril 1.25 mg capsule 1.25 mg PO DAILY 05/24/25
Held on 05/26/25. Instructions: Resume on 06/09/25.
rosuvastatin 20 mg tablet 20 mg PO DAILY 05/24/25
sodium bicarbonate 650 mg tablet 650 mg PO DAILY 05/24/25
Home Medication Changes
Holdong Ramiopril pending BMP as OP
Pending Results: No
--- NOTE | 2025-05-26 14:10 | W.PN.GI.CBS2 ---
Today's Communication / Plan
-
He is now relatively asymptomatic, denies abd pain, but MRE shows moderate/severe enteritis
Will plan ileoscopy tomorrow. Give 2L colyte.
Decide on rx, steroids, after scope. May need to discuss biologics as outpt.
Assessment / Plan
-
Pt is a 74yo with no prior visits at with hx CKD, anemia, HTN, cholelithiasis, hyperthyroidism on Methimazole, depression, prior b/l THR, and ulcerative colitis. In review with patient he had total colectomy and ileostomy in [place] 35 years ago then removal of rectum 1 years after that. He was unsure if his diagnosis was changed to crohn's over the years and saw occasional GI in follow up last about 10 years ago. He had several admission to a hospital in
[place], [place] with what sound like possible SBO with decreased ostomy output. He has never taken medication for colitis for last 35 years. He also admits that the external stoma on ostomy fell off about 1-2 years ago and now depressed
ostomy and pt did not seek care as was still functioning. He now presents with change in ostomy output to liquid stools over last 4 weeks. Typically output is formed with change 4 times per day. Now all liquid with change 4-5 times per day. He
was then noted with fever and weakness. On admission noted with concern worsening CKD and metabolic acidosis with hyponatremia. Labs with Na 130, K 5.3, creat 3.1, WBC 12.8 with normal LFT's and lipase. CT on admission with prior colectomy right
LQ ileostomy, stranding in distal ileum with enteritis, prominence with ileostomy within abdominal wall.In review with patient he admits to nausea and small amount of vomiting, he denies odynophagia, dysphagia, wt loss, GERD, abdominal pain, blood
or black in stools. Last colonoscopy 35 years ago. No prior EGD. No NSAID other than ASA use. No anticoagulation use.
-change in ostomy output with liquid stools for 4 weeks
-low grade fever/leukocytosis
-nausea
-metabolic acidosis
-hyponatremia
-CT concern for enteritis and distal ileum stranding
-hx Ulcerative with ? transition to crohns but no current medication
-hx sluffing off of stoma about 1-2 years ago with flat stoma
-acute on chronic CKD
-hx prior SBO in past
other med problems:
- hx anemia- per patient related to CKD
-HTN
- cholelithiasis
- hyperthyroidism on Methimazole
- depression
- prior b/l THR
MRE: severe acute enteritis 6cm segment b/w anterior abd wall and skin as well as mod/severe enteritis 12cm intraperitoneal ileum proximal to abd wall
Subjective
Subjective
Date of Service: May 26, 2025
Denies abd pain. Ileostomy output stable.
Objective
Data Reviewed
Laboratory Data:
Laboratory Results
05/25/25 07:32
05/26/25 07:19
Laboratory Results
Total Bilirubin 0.8 mg/dl (0.2-1.3) 05/23/25 20:00
AST 21 U/L (17-59) 05/23/25 20:00
ALT 14 U/L (0-50) 05/23/25 20:00
Alkaline Phosphatase 75 U/L (38-126) 05/23/25 20:00
Lipase 111 U/L (23-300) 05/23/25 20:00
Vital Signs and I&O:
Vital Signs
Temp Pulse Resp BP Pulse Ox
98.2 F 65 16 147/78 97
05/26/25 07:59 05/26/25 07:59 05/26/25 07:59 05/26/25 07:59 05/26/25 14:04
I&O
05/25/25 05/26/25 05/27/25
06:59 06:59 06:59
Intake Total 1500 / 1500 800 / 800 1020 / 1020
Balance 1500 / 1500 800 / 800 1020 / 1020
Physical Exam
Physical Exam
GI: Soft, Distended and Non Tender
[2025-05-26 15:49] VITALS: BP 121/65
--- NOTE | 2025-05-26 15:56 | W.PN.HOSP.TC ---
Today's Communication/Plan
-
Prep for ileoscopy tomorrow.
BMP in a.m.
Assessment / Plan
Assessment / Plan
Impression
Patient is a 74y M with PMH significant for hypertension and CKD who presents to ED complaining of weakness and chills after 3 weeks of N/V/D with increased colostomy output
Enteritis.
� Presents with fever chills and increased colostomy output
ARTEMIO on CKD stage IIIb
Mild normal anion gap metabolic acidosis.
Hyponatremia
Conditions prior to admission
Ulcerative colitis status post colectomy remote over 35 years ago
CKD stage IIIb with baseline creatinine 2.5
Essential hypertension
Presumably hyperthyroidism (patient is on methimazole)
Plan
Acute enteritis.
Infectious versus IBD. Given acuity of onset suspect infectious.
Crohn's disease with colectomy over 35 years ago. Currently not on any anti-inflammatory or Biologics.
Presents with fever chills at home. Reports abdominal discomfort, nausea vomiting and increased colostomy output for over a week.
Afebrile
Mild leukocytosis
CT scan with oral contrast only suggestive of ileitis.
Stool cultures negative
Stool for C. difficile negative.
Check calprotectin, pending
MRE findings consistent with severe acute enteritis involving terminal ileum, intraperitoneal distal ileum. Differential acute infection versus Crohn's flareup. 1.5 cm enhancing mass in the subcutaneous fat adjacent to the distal ileal loops in
ileostomy (probably enlarged lymph node)
No clinical indication for antibiotics
Overall improved initially on clear liquid diet and with IV hydration
Plan is for prep and ileoscopy/biopsy on 05/27.
Discussed with gastroenterology
ARTEMIO on CKD stage III
Mild normal anion gap metabolic acidosis with
Mild hyponatremia presumed due to volume loss.
Low urine sodium and osmolarity 427 consistent with prerenal stimuli with increased ADH state.
Creatinine improved with hydration close to baseline 2.3
Continue oral bicarbonate
Observe off IV fluids
Presumed hyperthyroidism (patient was on methimazole pending home med reconciliation,
TSH 0.55
Essential hypertension.
Pending home med reconciliation. Hold antihypertensives secondary to above.
Monitor BP trend
Anticipated Discharge: 24 - 48 hours
Subjective/Interval History
-
Date of Service: May 26, 2025
Objective Data
-
Labs:
Laboratory Results
05/26/25
07:19
Sodium 136
Potassium 4.5
Chloride 107
Carbon Dioxide 24
BUN 32 H
Creatinine 2.3 H
Glucose 98
Calcium 8.6
Vital Signs:
Vital Signs
Temp Pulse Resp BP Pulse Ox
98.6 F 65 16 121/65 99
05/26/25 15:49 05/26/25 15:49 05/26/25 15:49 05/26/25 15:49 05/26/25 15:49
I&O
05/25/25 05/26/25 05/27/25
06:59 06:59 06:59
Intake Total 1500 / 1500 800 / 800 1020 / 1020
Balance 1500 / 1500 800 / 800 1020 / 1020
Physical Exam
-
General: Well Developed and No Apparent Distress
HEENT: Normocephalic, Atraumatic and Moist Mucous Membranes
Respiratory: Clear to Auscultation
Cardiac: Regular Rhythm and S1/S2; Negative Murmur, Rub or Gallop
GI: Soft, Nontender, Nondistended, Normal Bowel Sounds and Ostomy (Right upper quadrant colostomy.); Negative Organomegaly
Rectal: Deferred by Provider
Musculoskeletal: No Clubbing, No Cyanosis and No Edema
Skin: Negative Rash
Neuro: Nonfocal/Grossly Intact
[2025-05-26] MEDS: NULYTELY SOLUTION 2 LITERS PO (17:17)
[2025-05-26 23:25] VITALS: BP 141/74
[2025-05-27] MEDS: HEPARIN 5000 UNITS SC ×4 (00:10→23:18)
[2025-05-27 07:00] VITALS: BP 138/71
[2025-05-27 08:34] LABS: Hematocrit 34.6 % (39.0-52.0); Hemoglobin 12.1 g/dL (13.0-18.0); Mean Corp Hgb Conc. 35.0 g/dL (33.0-37.0); Mean Corpuscular Volume 84.4 fL (80.0-94.0); Nucleated Red Blood Cells % 0 % (-); Platelet Count 67 10^3/uL (130-400); Red Cell Dist. Width 12.4 % (11.5-14.5)
[2025-05-27 09:07] LABS: Blood Urea Nitrogen 30 mg/dl (9-20); Calcium 8.9 mg/dl (8.4-10.2); Carbon Dioxide 21 mmol/L (22-30); Chloride 105 mmol/L (98-107); Estimated Creatinine Clearance 32 ml/min; Glucose 100 mg/dl (70-99); Potassium 4.9 mmol/L (3.5-5.1); Sodium 132 mmol/L (135-145); eGFR 28.71
--- NOTE | 2025-05-27 10:18 | W.PN.HOSP.TC ---
Today's Communication/Plan
-
Plan for Ileo-scope today
Assessment / Plan
Assessment / Plan
Physical exam:
General: Acutely ill
HEENT: Normocephalic, Atraumatic and Moist Mucous Membranes
Respiratory: Clear to Auscultation; Negative Wheezes, Rales or Rhonchi
Cardiac: Regular Rhythm and S1/S2
GI: Soft, Nontender and Nondistended. Ostomy in place with loose brown stools.
Musculoskeletal: No Clubbing, No Cyanosis and No Edema
Neuro: Awake, Alert and Oriented, no neurological deficit
Psych: Calm
Impression
Patient is a 74y M with PMH significant for hypertension and CKD who presents to ED complaining of weakness and chills after 3 weeks of N/V/D with increased colostomy output
Enteritis.
� Presents with fever chills and increased colostomy output
ARTEMIO on CKD stage IIIb
Mild normal anion gap metabolic acidosis.
Hyponatremia
Conditions prior to admission
Ulcerative colitis status post colectomy remote over 35 years ago
CKD stage IIIb with baseline creatinine 2.5
Essential hypertension
Presumably hyperthyroidism (patient is on methimazole)
Plan
Acute enteritis.
Infectious versus IBD. Given acuity of onset suspect infectious.
Crohn's disease with colectomy over 35 years ago. Currently not on any anti-inflammatory or Biologics.
Presents with fever chills at home. Reports abdominal discomfort, nausea vomiting and increased colostomy output for over a week.
Afebrile
Mild leukocytosis
CT scan with oral contrast only suggestive of ileitis.
Stool cultures negative
Stool for C. difficile negative.
Check calprotectin, pending
MRE findings consistent with severe acute enteritis involving terminal ileum, intraperitoneal distal ileum. Differential acute infection versus Crohn's flareup. 1.5 cm enhancing mass in the subcutaneous fat adjacent to the distal ileal loops in
ileostomy (probably enlarged lymph node)
No clinical indication for antibiotics
Overall improved initially on clear liquid diet and with IV hydration
Plan is for prep and ileoscopy/biopsy on 05/27. Plan to advance diet after procedure depending on results. Plan to do PT eval as well.
Discussed with gastroenterology
ARTEMIO on CKD stage IV
Mild normal anion gap metabolic acidosis with
Mild hyponatremia presumed due to volume loss.
Low urine sodium and osmolarity 427 consistent with prerenal stimuli with increased ADH state.
Creatinine improved with hydration close to baseline 2.3
Continue oral bicarbonate
Observe off IV fluids
Presumed hyperthyroidism (patient was on methimazole pending home med reconciliation,
TSH 0.55
Essential hypertension.
Pending home med reconciliation. Hold antihypertensives secondary to above.
Monitor BP trend
Total time spent on today's encounter was 52 minutes which included time spent in counseling the patient/family regarding diagnosis and treatment plan as listed above, goals of care, and symptom management. Case was discussed with nursing staff,
specialists, and care coordinators/case management. All labs and imaging personally reviewed by me. Remainder the time spent in detailed review of previous records, lab data, imaging, and other medical provider documentation.
Anticipated Discharge: 24 - 48 hours
Subjective/Interval History
-
Date of Service: May 27, 2025
Patient had bowel prep overnight. No chest pain or shortness of breath.
Objective Data
-
Labs:
Laboratory Results
05/27/25 05/27/25
07:59 08:00
WBC 5.5
Hgb 12.1 L
Hct 34.6 L
Plt Count 67 L
Sodium 132 L
Potassium 4.9
Chloride 105
Carbon Dioxide 21 L
BUN 30 H
Creatinine 2.3 H
Glucose 100 H
Calcium 8.9
Vital Signs:
Vital Signs
Temp Pulse Resp BP Pulse Ox
98.2 F 68 14 138/71 98
10/25/25 07:00 05/27/25 07:00 05/27/25 07:00 05/27/25 07:00 05/27/25 07:00
I&O
05/26/25 05/27/25 05/28/25
06:59 06:59 06:59
Intake Total 800 / 800 1440 / 1440
Balance 800 / 800 1440 / 1440
--- NOTE | 2025-05-27 12:31 | W.PN.UPDATE ---
Update Note
Progress Note Update
Ileoscopy done
Stoma was stenotic and erythematous, unable to traverse with upper endoscope
Changed to stricturoscope and passed into ileum, distal 20cm
Mucus erythema seen distal 15cm, distal greater than proximal. Bx taken
REC:
Resume diet
Await path
I told pt to f/u with me in office to discuss rx
Also recommended seeing Colorectal Surgery for inflamed stenotic stoma. May need eventual revision
[2025-05-27] MEDS: SODIUM BICARBONATE 650 MG PO (12:48)
--- NOTE | 2025-05-27 12:48 | PTCARENOTE ---
Patient received from GI lab, AAOx3, reports no discomfort at this time. VS within normal limits. Patient ordering lunch -Low residual diet.
[2025-05-27 12:52] VITALS: BP 125/73
[2025-05-27 15:10] VITALS: BP 116/65
[2025-05-27] MEDS: MELATONIN 5 MG PO (20:48)
[2025-05-27 23:08] VITALS: BP 149/75
[2025-05-28 07:04] VITALS: BP 133/72
[2025-05-28] MEDS: HEPARIN 5000 UNITS SC (08:44)
[2025-05-28] MEDS: SODIUM BICARBONATE 650 MG PO (08:45)
[2025-05-28 08:47] LABS: Hematocrit 36.6 % (39.0-52.0); Hemoglobin 12.3 g/dL (13.0-18.0); Mean Corp Hgb Conc. 33.6 g/dL (33.0-37.0); Mean Corpuscular Volume 86.9 fL (80.0-94.0); Platelet Count 73 10^3/uL (130-400); Red Cell Dist. Width 12.3 % (11.5-14.5)
[2025-05-28 09:09] LABS: Blood Urea Nitrogen 31 mg/dl (9-20); Calcium 9.3 mg/dl (8.4-10.2); Carbon Dioxide 24 mmol/L (22-30); Chloride 102 mmol/L (98-107); Estimated Creatinine Clearance 30 ml/min; Glucose 103 mg/dl (70-99); Potassium 4.1 mmol/L (3.5-5.1); Sodium 133 mmol/L (135-145); eGFR 27.28
[2025-05-28 09:10] LABS: C-Reactive Protein 31.40 mg/L (0.0-10.00)
[2025-05-28 09:46] VITALS: BP 130/68; PULSE 70; O2SAT 99
[2025-05-28 10:02] VITALS: BP 121/69; BP 130/68; PULSE 70; O2SAT 99
--- NOTE | 2025-05-28 10:49 | W.PN.HOSP.TC ---
Today's Communication/Plan
-
Discharge planning
Assessment / Plan
Assessment / Plan
Physical exam:
General: No acute distress
HEENT: Normocephalic, Atraumatic and Moist Mucous Membranes
Respiratory: Clear to Auscultation; Negative Wheezes, Rales or Rhonchi
Cardiac: Regular Rhythm and S1/S2
GI: Soft, Nontender and Nondistended. Ostomy in place with loose brown stools.
Musculoskeletal: No Clubbing, No Cyanosis and No Edema
Neuro: Awake, Alert and Oriented, no neurological deficit
Psych: Calm
Impression
Patient is a 74y M with PMH significant for hypertension and CKD who presents to ED complaining of weakness and chills after 3 weeks of N/V/D with increased colostomy output
Enteritis.
� Presents with fever chills and increased colostomy output
ARTEMIO on CKD stage IIIb
Mild normal anion gap metabolic acidosis.
Hyponatremia
Conditions prior to admission
Ulcerative colitis status post colectomy remote over 35 years ago
CKD stage IIIb with baseline creatinine 2.5
Essential hypertension
Presumably hyperthyroidism (patient is on methimazole)
Plan
Update on 05/28:
Patient able to tolerate diet without any problems and renal function and electrolytes within normal
Discussed with family at bedside
We sent message to GI and he is clearing him for discharge.
He will need follow-up with GI and colorectal surgery referral as outpatient
Plan to discharge today
Acute enteritis.
Infectious versus IBD. Given acuity of onset suspect infectious.
Crohn's disease with colectomy over 35 years ago. Currently not on any anti-inflammatory or Biologics.
Presents with fever chills at home. Reports abdominal discomfort, nausea vomiting and increased colostomy output for over a week.
Afebrile
Mild leukocytosis
CT scan with oral contrast only suggestive of ileitis.
Stool cultures negative
Stool for C. difficile negative.
Check calprotectin, pending
MRE findings consistent with severe acute enteritis involving terminal ileum, intraperitoneal distal ileum. Differential acute infection versus Crohn's flareup. 1.5 cm enhancing mass in the subcutaneous fat adjacent to the distal ileal loops in
ileostomy (probably enlarged lymph node)
No clinical indication for antibiotics
Overall improved initially on clear liquid diet and with IV hydration
Plan is for prep and ileoscopy/biopsy on 05/27. Plan to advance diet after procedure depending on results. Plan to do PT eval as well.
Discussed with gastroenterology
ARTEMIO on CKD stage IV
Mild normal anion gap metabolic acidosis with
Mild hyponatremia presumed due to volume loss.
Low urine sodium and osmolarity 427 consistent with prerenal stimuli with increased ADH state.
Creatinine improved with hydration close to baseline 2.3
Continue oral bicarbonate
Observe off IV fluids
Presumed hyperthyroidism (patient was on methimazole pending home med reconciliation,
TSH 0.55
Essential hypertension.
Pending home med reconciliation. Hold antihypertensives secondary to above.
Monitor BP trend
Total time spent on today's encounter was 35 minutes which included time spent in counseling the patient/family regarding diagnosis and treatment plan as listed above, goals of care, and symptom management. Case was discussed with nursing staff,
specialists, and care coordinators/case management. All labs and imaging personally reviewed by me. Remainder the time spent in detailed review of previous records, lab data, imaging, and other medical provider documentation.
Anticipated Discharge: Today
Subjective/Interval History
-
Date of Service: May 28, 2025
No nausea or vomiting. Stool output okay. Afebrile
Objective Data
-
Labs:
Laboratory Results
05/28/25
07:37
WBC 7.8
Hgb 12.3 L
Hct 36.6 L
Plt Count 73 L
Sodium 133 L
Potassium 4.1
Chloride 102
Carbon Dioxide 24
BUN 31 H
Creatinine 2.4 H
Glucose 103 H
Calcium 9.3
Vital Signs:
Vital Signs
Temp Pulse Resp BP Pulse Ox
98.2 F 66 16 133/72 97
05/28/25 07:04 05/28/25 07:04 05/28/25 07:04 05/28/25 07:04 05/28/25 07:04
I&O
05/27/25 05/28/25 05/29/25
06:59 06:59 06:59
Intake Total 1440 / 1440 240 / 240
Balance 1440 / 1440 240 / 240
--- NOTE | 2025-05-28 12:30 | W.DCSUMMARY ---
Discharge Summary
Discharge Data
Date of Admission: 05/24/25
Date of Discharge: 05/28/25
Total time spent discharging patient (in min): 35
-
Pending Results: No
Hospital Course
Patient 74-year-old male with history of hypertension, CKD, ulcerative colitis versus Crohn's status post colectomy and end ileostomy presents to the hospital with increased output from his ostomy and fevers. GI consulted. Patient received IV
fluid and renal function and electrolytes was monitored. He is creatinine was as high as 3.3 but it went down to 2.4 upon discharge. He is hyperkalemia resolved. Patient had enterography MRI that shows evidence of acute enteritis. GI decided to
do ileoscopy and if he was found to have stoma to be stenotic and erythematous so he changed to stricture scope and he passed into ileum and was seen mucosa erythema and biopsies were taken. Patient is feeling better symptomatically. GI cleared
him for discharge and will have him follow-up with him as outpatient. GI also recommended colorectal surgery evaluation as outpatient as well. Discussed his findings with family at bedside. He will need follow-up BMP as outpatient as well.
Discussed with daughter and at bedside today. Family would like to have visiting nurses so I placed an order to case resolution specialist for home health. Otherwise, patient hemodynamically stable and eating and drinking well. He will be discharged in
relatively stable condition today.
Discharge duration: 35 minutes
Discharge Plan
-
Patient Disposition: Home with Home Care
Discharge Diagnosis/Procedures: Acute enteritis concerns for inflammatory bowel disease. Acute kidney injury. Chronic kidney disease stage IV. Hyponatremia. Hyperkalemia, resolved.
Condition: Good
Diet: Low Fat
Activity: As tolerated
Blood Work: Please PCP to order CBC, BMP within one week
Stand Alone Forms: Return to Work
Referrals:
Primary care provider [Other] - in less than 1 week
Umesh Piedra MD [Active, ColoRectal] - in two to four weeks
Referral Note: Inflamed stenotic stoma. Evaluation for revision.
Eugene Montero MD [Active, Gastroenterology] - in one to two weeks
UNKNOWN - PT DOES,NOT KNOW [Family Provider]
Prescriptions:
Continued
paroxetine HCl 10 mg tablet
10 mg PO DAILY
amlodipine 5 mg tablet
5 mg PO DAILY
sodium bicarbonate 650 mg tablet
650 mg PO DAILY
methimazole 5 mg tablet
5 mg PO DAILY
rosuvastatin 20 mg tablet
20 mg PO DAILY
Jardiance 10 mg tablet
10 mg PO DAILY
melatonin 5 mg Tablet
5 mg PO HS
Held
ramipril 1.25 mg capsule
1.25 mg PO DAILY
Hold Instructions: Resume on 06/09/25.
Discharge Orders:
Discharge Patient (As Directed); Ordered 05/28/25
Ordered By: Maximiliano Fontana
Discharge Date and Time
Discharge Date/Time: 05/28/25 13:51
Print Language: ITALIAN
--- NOTE | 2025-05-28 12:44 | CM ---
CM following re: discharge planning.
Reviewed pt's chart, met with pt. pt's daughter and pt's spouse at bedside.
Discharge order noted. Both pt and his family are aware, expressed their agreement. IMM reviewed, placed on chart, pt has a copy.
PT and OT evaluations noted - home PT/OT recommended. Both pt and his family are aware and they requested [facility]. A referral to [facility] made.
Please fax discharge instructions to [facility] [phone]
D/C plan: home with [facility] and family support. Daughter to transport.
[2025-05-28 12:59] VITALS: BP 112/74
[2025-05-29 15:12] LABS: Calprotectin, Fecal 371 ug/g (<=49)
== END 2025-05-28 13:51 | disposition home health service (06) | DRG 386 ==
LOC: 2 SOUTH 07:21
PROVIDERS: Internal Medicine; Nurse Practitioner Adult Health; Physician Assistant; Specialist; Student in an Organized Health Care Education/Training Program; ADMITTING PHYSICIAN Hospitalist; ATTENDING PHYSICIAN Hospitalist; CONSULT PHYSICIAN Internal Medicine; EMERGENCY PHYSICIAN Student in an Organized Health Care Education/Training Program
PROC: 0DBN8ZX Excision of Sigmoid Colon, Via Natural or Artificial Opening Endoscopic, Diagnostic (ICD-10-PCS; 2025-05-27)
DX: K51.918 Ulcerative colitis, unspecified with other complication (principal); E87.1 Hypo-osmolality and hyponatremia; N17.9 Acute kidney failure, unspecified; N18.4 Chronic kidney disease, stage 4 (severe); E87.20 Acidosis, unspecified; F03.93 Unspecified dementia, unspecified severity, with mood disturbance; E11.22 Type 2 diabetes mellitus with diabetic chronic kidney disease; I12.9 Hypertensive chronic kidney disease with stage 1 through stage 4 chronic kidney disease, or unspecified chronic kidney disease; E87.5 Hyperkalemia; E03.9 Hypothyroidism, unspecified; E05.90 Thyrotoxicosis, unspecified without thyrotoxic crisis or storm; D63.1 Anemia in chronic kidney disease; F32.A Depression, unspecified; K80.20 Calculus of gallbladder without cholecystitis without obstruction; Z79.899 Other long term (current) drug therapy; Z79.84 Long term (current) use of oral hypoglycemic drugs; Z93.3 Colostomy status; Z11.52 Encounter for screening for COVID-19
CPT/HCPCS: 51798; 72197; 74176; 74183; 80048; 80053; 81003; 81015; 82962; 83605; 83690; 83935; 83993; 84300; 84443; 85025; 85027; 85652; 86140; 87040; 87045; 87046; 87324; 87328; 87329; 87427; 87449; 87502; 87811; 88305; 89055; 93005; 96360; 96361; 97162; 97166; 99285; A9575